=== PATIENT | male | born 1930 | race Caucasian/White ===

== ENCOUNTER 2017-08-19 15:50 | Observation (INO) | payer MEDICARE, OTHER ==
[2017-08-19] MEDS ORDERED: Acetaminophen 500 MG TAB ONE (16:45)
[2017-08-19] MEDS ORDERED: Acetaminophen 325 MG TAB PO PRN (19:15)
[2017-08-19] MEDS ORDERED: Ondansetron HCl/PF 4 MG/2 ML Vial IVP PRN ×2 (19:15→19:22)
[2017-08-19] MEDS ORDERED: Ondansetron ODT 4 MG TAB SL PRN (19:15)
[2017-08-19] MEDS ORDERED: Ondansetron ODT 4 MG TAB PO PRN (19:22)
[2017-08-19] MEDS ORDERED: Acetaminophen 500 MG TAB PO PRN (19:22)
[2017-08-19] MEDS ORDERED: Atorvastatin Calcium 40 MG TAB PO SCH (21:00)
[2017-08-19] MEDS: Famotidine 20 MG TAB PO SCH (21:54)
--- NOTE | 2017-08-19 21:57 | HP ---
PRIMARY CARE PHYSICIAN: Dahiana Marshall M.D. CHIEF COMPLAINT: Slurred speech and confusion. HISTORY OF PRESENT ILLNESS: This is an 87-year-old male who presented to [facility] after family noted increased confusion, left facial droop, slurred speech and shor tness of breath. Patient apparently developed the symptoms in the bladder trimmer hours on 08/19/2017 , noted by his 24-hour caregiver and family members. The history is obtained exclusively after disc ussions with the patient's family as the patient is unable to relate a coherent history due to demen tia. The patient was unable to get out of bed in the morning and typically uses a rolling walker wi th standby assistance. The reports he has been unable to utilize the walker over the last 2 da ys and has been wheelchair dependent. No specific history of medical noncompliance, recent fall, in jury, fever, chills or travel history. Patient underwent evaluation including CT imaging of the bra in showing no acute process. The patient had improvement in overall facial droop and dysarthria at the time of evaluation in the emergency room. The patient was transferred from [facility] to [facility] for further evaluation. PAST MEDICAL HISTORY: 1. Alzheimer dementia. 2. History of gross hematuria secondary to heparin. 3. History of rectal bleeding secondary to internal hemorrhoids. 4. Coronary artery disease, chronic and stable. 5. Hypertension. 6. Deconditioning. 7. Chronic obstructive pulmonary disease. 8. Chronic hypoxic respiratory failure with chronic oxygen supplementation nocturnally. 9. Gastroesophageal reflux disease. PAST SURGICAL HISTORY: 1. Status post back surgery. 2. Status post ureteral stent placement. 3. Status post inguinal hernia repair. 4. Status post prostatectomy. 5. Status post skin cancer removal in the 2002. CURRENT MEDICATIONS: Based on previous admission in 2017; 1. Amlodipine 10 mg 1 tab p.o. daily. 2. Enteric coated aspirin 81 mg 1 tab p.o. daily. 3. Lipitor 20 mg one tablet p.o. at bedtime. 4. Calcium 1200 mg p.o. b.i.d. 5. Citalopram 5 mg p.o. b.i.d. 6. Vitamin B12 1000 mcg p.o. daily. 7. Depakote 250 mg p.o. q.a.m. and 500 mg p.o. at bedtime. 8. Folic acid 1 mg p.o. daily. 9. Floranex 2 tabs p.o. b.i.d. 10. Lisinopril 40 mg 1 tab p.o. daily. 11. Namenda 10 mg p.o. at bedtime. 12. Myrbetriq 100 mg 1 tab p.o. at bedtime. 13. Protonix 40 mg 1 tab p.o. daily. 14. Vitamin E 400 units p.o. at bedtime. 15. Risperdal 0.5 mg p.o. at bedtime. ALLERGIES: 1. BACLOFEN. 2. KEFLEX. 3. CODEINE. 4. FLEXERIL. 5. DICLOFENAC. FAMILY HISTORY: No inheritable diseases per patient report. SOCIAL HISTORY: Patient resides in the [place], [place] area with family. The patient is marrie d. Receives 24-hour private care. No alcohol, tobacco or illicit drug use. Ambulates with the use of a rolling walker or wheelchair. REVIEW OF SYSTEMS: Constitutional: Weight loss or gain, ability to conduct usual activities. Skin: Rash, itching. Eyes: Double vision, pain. ENT/Mouth: Nose bleeding, neck stiffness, pain, tenderness. Cardiovascular: Palpitations, dyspnea on exertion, orthopnea. Respiratory: Shortness of breath, wheezing, cough, hemoptysis, fever or night sweats. Gastrointestinal: Poor appetite, abdominal pain, heartburn, nausea, vomiting, constipation, or diar johnathan. Genitourinary: Urgency, frequency, dysuria, nocturia. Musculoskeletal: Pain, swelling. Neurologic/Psychiatric: Anxiety, depression. Allergy/Immunologic: Skin rash, bleeding tendency. Otherwise negative except as stated per HPI. PHYSICAL EXAMINATION: VITAL SIGNS: On admission, blood pressure 155/74, pulse 60, respiratory rate 19, temperature 98.4 d egrees Fahrenheit and O2 saturation 92% on room air. GENERAL APPEARANCE: This is an 87-year-old male lying on the hospital bed, alert and resp onsive, oriented x2, pleasant, in no acute distress. HEENT: Pupils are equal, round and reactive to light and accommodation. Extraocular muscles are in tact. No scleral icterus, no conjunctival injection. Nares patent. OP is clear. Teeth in fair re pair. NECK: Supple. No cervical adenopathy, no thyromegaly, no carotid bruits, no JVD appreciated. Cerv ical spine with full active and passive range of motion. CHEST: Lungs are clear to auscultation bilaterally. Diminished breath sounds in the bases. CARDIOVASCULAR: S1 and S2, without noted murmur. ABDOMEN: Obese, soft, nontender and nondistended. Bowel sounds are positive in all four quadrants. There is no hepatosplenomegaly, no abdominal bruits, no rebound or guarding appreciated. EXTREMITIES: Warm and dry with fair turgor. Mild edema to the proximal shins bilaterally. Pulses are palpable distally at the dorsalis pedis, posterior tibial and popliteal arteries bilaterally. C apillary refill less than 2 seconds. NEUROLOGIC: Mild left facial droop noted. Mild dysarthria. Left upper extremity with 3-4/5 muscle strength compared to the right upper extremity. The patient not observed ambulatory during this ex am. Rest of the cranial nerves II-XII are grossly intact except as stated previously. PERTINENT LABORATORY AND X-RAY FINDINGS: Basic metabolic profile within normal limits. Liver funct ion tests within normal limits. Troponin negative x1. BNP 38.4, albumin 3.8 and TSH 1.47. CBC fletcher wed a white blood cell count of 8.1, hemoglobin 14.6, hematocrit 44, MCV 96 and platelet count 168. Urinalysis showed trace blood, otherwise negative. CT of the brain without contrast dated 017, showed diffuse cortical atrophy without acute intracranial process. Portable chest x-ray dated 08/19/2017, showed no acute cardiopulmonary process. Two views of the left hip dated 08/19/2017, s howed no evidence of fracture or dislocation. EKG dated 08/19/2017, by my interpretation shows sinu s mechanism with heart rates in the 60s. Normal R-wave progression noted in the precordial leads. Normal axis. No acute ST-T wave changes appreciated. ASSESSMENT AND PLAN: 1. Transient ischemic attack. The patient will be observed on the Stroke Unit. We will proceed [facility] general stroke protocol and obtain MRI imaging of the brain to further delineate neuroanatomy. C margothk 2D transthoracic echocardiogram and carotid Doppler study. Check fasting lipid profile in the a.m. Continue aspirin 325 mg daily. 2. Encephalopathy. Suspect secondarily to #1. We will continue general supportive measures and mo nitor clinical response. 3. Alzheimer dementia. Continue Namenda 10 mg p.o. at bedtime. 4. Hyperlipidemia. Continue Lipitor 40 mg p.o. at bedtime. 5. Coronary artery disease, chronic and stable. Continue aspirin 325 mg daily. Continue Lipitor. No current evidence to suggest acute coronary syndrome. 6. Deconditioning. Obtain PT, OT evaluation for functional assessment. General fall risk precauti ons. 7. Prophylaxis. Sequential compression devices while in bed. Pepcid 20 mg p.o. b.i.d. 8. Code status is full. Surrogate medical decision maker is patient's spouse.
[2017-08-19 22:46] VITALS: BMI 27.8
--- NOTE | 2017-08-20 00:04 | ULT ---
BILATERAL CAROTID DUPLEX ULTRASOUND WITH SPECTRAL ANALYSIS AND COLOR FLOW EVALUATION 08/19/17 HISTORY: TIA. FINDINGS: Manzano scale, color flow, doppler evaluation, with spectral analysis of the bilateral carotid arteries is performed with 2D imaging. There is calcified atherosclerotic plaque seen in the region of the c arotid bulbs and proximal internal carotid arteries bilaterally. There is less than 50% maximal stenosis in the bilateral internal carotid arteries according to the peak systolic velocities and the ICA/CCA ratios. The peak systolic velocity in the right ICA is 69.9 cm/s with an ICA/CCA ratio of 0.7. The peak systolic velocity in the left ICA is 57.8 cm/s with an ICA/CCA ratio of 0.62. Antegrade flow is demonstrated in the vertebral arteries bilaterally. IMPRESSION: No hemodynamically significant stenosis in the bilateral internal carotid arteries. POS: LAYLA
[2017-08-20 06:04] LABS: Anion Gap 12 mmol/L (10-20); BUN (Urea Nitrogen) 18 mg/dL (8.4-25.7); Calc. Creatinine Clearance 83 mL/min (70-130); Calcium 8.9 mg/dL (7.8-10.44); Carbon Dioxide 26 mmol/L (23-31); Chloride 103 mmol/L (98-107); Cholesterol 258 mg/dl (< 200 Desired); Estimated GFR-MDRD Greater than 90; LDL Cholesterol, Calculated 193 mg/dL
[2017-08-20 06:12] LABS: Hematocrit 39.6 % (42.0-52.0); Mean Platelet Volume 8.1 fL (7.4-10.4); Neutrophil 44 % (42-75); Reactive Lymphocytes 5 % (0-10); Red Blood Cell (RBC) Count 3.99 mill/uL (4.70-6.10); White Blood Cell (WBC) Count 6.8 thou/uL (4.8-10.8)
[2017-08-20] MEDS ORDERED: Aspirin 325 mg Enteric Coated Tablet PO SCH (09:00)
[2017-08-20] MEDS: Famotidine 20 MG TAB PO SCH (09:02)
[2017-08-20 11:48] VITALS: TEMP 97.6
[2017-08-20 14:42] VITALS: BP 118/53
--- NOTE | 2017-08-20 15:31 | DIS ---
DATE OF ADMISSION: 08/19/2017 DATE OF DISCHARGE: 08/20/2017 DISCHARGE DIAGNOSES: 1. Question of transient ischemic attack, resolved. 2. Hypertension, stable. 3. Acute encephalopathy, idiopathic, resolved. 4. Alzheimer's dementia, stable. 5. Hyperlipidemia. 6. Coronary artery disease, chronic and stable. 7. Deconditioning. CONSULTATIONS: None. PERTINENT LABORATORY DATA AND X-RAY FINDINGS: Basic metabolic profile within normal limits. Total cholesterol 258, triglycerides 104, HDL 44, LDL 193. CBC showed a white blood cell count of 6.8, he moglobin 13, hematocrit 40, MCV 99, platelet count 171. CT of the brain without contrast dated 07/24 showed diffuse cortical atrophy and white matter ischemic changes without acute process. Por table chest x-ray dated 08/19/2017 showed no acute cardiopulmonary process. Two views of the left h ip dated 08/19/2017 showed no evidence of acute process. MRI of the brain dated 08/20/2017 showed d iffuse chronic ischemic white matter changes without acute process. A 2D transthoracic echocardiogr am dated 08/20/2017 showed ejection fraction of 60%-65%. Diastolic dysfunction noted. Carotid Dopp ler study dated 08/19/2017 showed no hemodynamically significant stenosis. HOSPITAL COURSE: Patient was observed on the stroke unit after initially presenting with questionab le TIA with dysarthria and questionable left facial droop. The patient underwent extensive evaluati on including neuro imaging and general stroke protocol with all studies negative. The patient's sym ptoms had resolved and telemetry monitoring showed no evidence of acute arrhythmia or dysrhythmia. Metabolic screening was essentially unremarkable and the patient was recommended to continue aspirin 81 mg daily. Overall, patient clinically stable and ready for discharge 08/20/2017. DISCHARGE MEDICATIONS: 1. Amlodipine 10 mg 1 tab p.o. daily. 2. Enteric coated aspirin 81 mg 1 tab p.o. daily. 3. Lipitor 20 mg p.o. at bedtime. 4. Citalopram 5 mg p.o. b.i.d. 5. Vitamin B12 1000 mcg p.o. daily. 6. Depakote ER 500 mg p.o. at bedtime. 7. Lisinopril 40 mg p.o. daily. 8. Namenda 10 mg p.o. at bedtime. 9. Myrbetriq 100 mg p.o. at bedtime. 10. Vitamin E 400 units p.o. at bedtime. 11. Risperdal 0.5 mg p.o. b.i.d. FOLLOWUP: The patient will follow up with Dr. Dahiana Marshall within 7 days of discharge. CONDITION ON DISCHARGE: Stable. ACTIVITY: Ad joya. DIET: Heart healthy. CODE STATUS: FULL. DISPOSITION: Home 08/20/2017.
--- NOTE | 2017-08-20 15:59 | MRI ---
MRI BRAIN WITHOUT CONTRAST: HISTORY: Altered mental status, TIA. FINDINGS: Correlation is made with the previous day's CT scan. Changes of cortical atrophy and chronic small-vessel ischemic disease are noted again. The ventricu lar size is appropriate and the basilar cisterns are patent. No restricted diffusion is seen. No e vidence of transcortical infarct, hemorrhage, midline shift, or abnormal extraaxial fluid collection s are noted. There is mild mucosal disease in the paranasal sinuses. IMPRESSION: 1. No evidence of acute intracranial process. 2. Chronic small-vessel ischemic disease. 3. Cortical atrophy. POS: LAYLA
[2017-08-20] MEDS ORDERED: Non-Formulary Item 1 EACH (Risperidone [Risperdal] 0.5 MG) PO SCH (21:00)
[2017-08-20] MEDS ORDERED: MIRABEGRON PO SCH (21:00)
[2017-08-20] MEDS ORDERED: Non-Formulary Item 1 EACH (Vitamin E [Vitamin E] 400 UNIT) PO SCH (21:00)
[2017-08-20] MEDS ORDERED: Vitami E (Dl,Tocopheryl Acet) 400 UNITS CAP PO SCH (21:00)
[2017-08-20] MEDS ORDERED: CITALOPRAM HYDROBROMIDE 5 MG PO SCH (21:00)
[2017-08-20] MEDS ORDERED: risperiDONE 0.25 MG TAB PO SCH (21:00)
[2017-08-21] MEDS ORDERED: Cyanocobalamin (Vitamin B-12) 1,000 MCG TAB PO SCH (09:00)
[2017-08-21] MEDS ORDERED: Lisinopril 20 MG TAB PO SCH (09:00)
[2017-08-21] MEDS ORDERED: Non-Formulary Item 1 EACH (Lisinopril [Lisinopril] 40 MG) PO SCH (09:00)
[2017-08-21] MEDS ORDERED: Aspirin 81 mg Enteric Coated Tablet PO SCH (09:00)
== END 2017-08-20 15:49 | disposition home health service (06) ==
LOC: ERS 15:50 → 2SE 17:45
PROVIDERS: ADMIT Family Medicine; ATTEND Family Medicine
DX: R47.1 Dysarthria and anarthria (principal); I10 Essential (primary) hypertension; G93.40 Encephalopathy, unspecified; G30.9 Alzheimer's disease, unspecified; F02.80 Dementia in other diseases classified elsewhere, unspecified severity, without behavioral disturbance, psychotic disturbance, mood disturbance, and anxiety; E78.5 Hyperlipidemia, unspecified; I25.10 Atherosclerotic heart disease of native coronary artery without angina pectoris; R53.81 Other malaise; J44.9 Chronic obstructive pulmonary disease, unspecified; J96.11 Chronic respiratory failure with hypoxia; K21.9 Gastro-esophageal reflux disease without esophagitis; Z99.81 Dependence on supplemental oxygen; Z79.82 Long term (current) use of aspirin; Z79.899 Other long term (current) drug therapy; Z88.6 Allergy status to analgesic agent; Z88.1 Allergy status to other antibiotic agents; Z88.5 Allergy status to narcotic agent; Z88.8 Allergy status to other drugs, medicaments and biological substances
CPT/HCPCS: 70551; 80048; 80061; 85007; 85027; 93306; 93880; 97116; 97139 ×3; 97530; 99285; G0378; G8978; G8979; G8987; G8988; 36415; G8996-GN-CK; G8997-GN-CJ

== ENCOUNTER 2017-09-23 20:28 | Inpatient (IN) | payer MEDICARE ==
--- NOTE | 2017-09-23 21:02 | RAD ---
AP VIEW OF THE CHEST: 10/12/17 INDICATION: Lethargy. COMPARISON: Prior exam dated 08/19/17. FINDINGS: There are low lung volumes. There is moderate cardiomegaly which is stable. There is bibasilar opaci ties which may be related to subsegmental atelectasis; however, pneumonia cannot be excluded. No def inite pneumothorax or pleural effusions. No acute osseous abnormality is evident. IMPRESSION: Low lung volumes with bibasilar opacities suspicious for atelectasis; however, pneumonia could have a similar appearance. Repeat two views of the chest with improved inspiration may be helpful. POS: LAYLA
[2017-09-23 21:09] LABS: #Eosinphils 0.2 thou/uL (0.0-0.7); #Lymphocytes 2.4 thou/uL (1.20-3.40); #Monocytes 0.8 thou/uL (0.11-0.59); #Neutrophils 3.3 thou/uL (1.40-6.50); %Basophils 0.4 % (0.0-1.0); %Eosinophils 2.4 % (0.0-10.0); %Monocytes 11.6 % (0.0-10.0); Hematocrit 42.2 % (42.0-52.0); Mean Platelet Volume 7.9 fL (7.4-10.4); Red Blood Cell (RBC) Count 4.26 mill/uL (4.70-6.10); White Blood Cell (WBC) Count 6.6 thou/uL (4.8-10.8)
[2017-09-23 21:32] LABS: ALT (SGPT) 9 U/L (8-55); AST (SGOT) 15 U/L (5-34); Alkaline Phosphatase 59 U/L (40-150); Anion Gap 15 mmol/L (10-20); BUN (Urea Nitrogen) 19 mg/dL (8.4-25.7); Bilirubin, Total 0.4 mg/dL (0.2-1.2); CK (CPK) 26 U/L (30-200); Calc. Creatinine Clearance 0 mL/min (70-130); Calcium 9.4 mg/dL (7.8-10.44); Carbon Dioxide 26 mmol/L (23-31); Chloride 104 mmol/L (98-107); Estimated GFR-MDRD 71; Globulin 3.1 g/dL (2.4-3.5); Protein, Total 6.5 g/dL (5.8-8.1)
[2017-09-23 21:34] LABS: Troponin I Less than 0.010 ng/mL (< 0.028)
[2017-09-23] MEDS ORDERED: Nitroglycerin 2% Ointment 1 INCH/1 GM Packet ONE (22:05)
[2017-09-23 22:08] LABS: Lactic Acid - Sepsis 1.7 mmol/L (0.5-2.2)
[2017-09-24 00:48] VITALS: BMI 28.4
[2017-09-24] MEDS ORDERED: Ondansetron ODT 4 MG TAB SL PRN (00:50)
[2017-09-24] MEDS ORDERED: Acetaminophen 325 MG TAB PO PRN (00:50)
[2017-09-24] MEDS ORDERED: Ondansetron HCl/PF 4 MG/2 ML Vial IVP PRN ×2 (00:50→01:34)
[2017-09-24] MEDS ORDERED: HYDROcodone/Acetaminophen 5/325 mg Tablet PO PRN ×2 (00:50)
[2017-09-24] MEDS ORDERED: hydrALAZINE 20 MG/ML VIAL SLOW IVP PRN (01:34)
[2017-09-24] MEDS ORDERED: cloNIDine 0.1 MG TAB PO PRN (01:34)
[2017-09-24] MEDS ORDERED: Acetaminophen 500 MG TAB PO PRN (01:34)
[2017-09-24] MEDS ORDERED: Ondansetron ODT 4 MG TAB PO PRN (01:34)
[2017-09-24 02:55] LABS: Hematocrit 38.3 % (42.0-52.0); Mean Platelet Volume 7.9 fL (7.4-10.4); Myelocyte 1 % (0-0); Neutrophil 41 % (42-75); Red Blood Cell (RBC) Count 3.86 mill/uL (4.70-6.10); White Blood Cell (WBC) Count 7.1 thou/uL (4.8-10.8)
[2017-09-24 03:05] LABS: Troponin I 0.014 ng/mL (< 0.028)
[2017-09-24 03:08] LABS: Anion Gap 12 mmol/L (10-20); BUN (Urea Nitrogen) 20 mg/dL (8.4-25.7); Calc. Creatinine Clearance 80 mL/min (70-130); Calcium 8.9 mg/dL (7.8-10.44); Carbon Dioxide 26 mmol/L (23-31); Chloride 104 mmol/L (98-107); Estimated GFR-MDRD 90
--- NOTE | 2017-09-24 05:37 | HP ---
DATE OF ADMISSION: 09/24/2017 PRIMARY CARE PHYSICIAN: Brennan Polanco MD CHIEF COMPLAINT: Lethargy. HISTORY OF PRESENT ILLNESS: This is an 87-year-old male who presents to [facility] Emergency Room accompanied by his who had reported to the initial ER attending of concerns for increased lethargy and difficulty arousing the patient at home. The patient appare ntly had been sleeping most of the day and was difficult to arouse at which point the patient's became concerned notifying EMS personnel. EMS arrived performing a sternal rub with the patient be ing difficult to arouse. The patient was transferred to the emergency room for evaluation and stephen rn for underlying infectious process and general assessment. had reported poor appetite over t he last several days as well as decreased urine output in the last 24 hours. The family reports the patient normally uses home oxygen continuously as well as night time. The patient has had limited mobility using a rolling walker for short distance ambulation. No specific history of recent fall. The patient was notably admitted to [facility] on 08/19/2017 to 08/20/2017 a fter acute encephalopathy of unknown etiology. Initial concern was related to possible TIA; however , the patient underwent multiple neuroimaging studies, all negative. In the emergency room, the pat ient underwent general evaluation receiving Levaquin 750 mg x1 dose as well as aspirin and topical n itroglycerin. Chest imaging showed questionable chronic opacities in the bibasilar segments concern ing for atelectasis. Pneumonitis could not be ruled out. The patient was referred to the telemetry unit for further evaluation. PAST MEDICAL HISTORY: 1. Alzheimer's dementia. 2. History of gross hematuria secondary to heparin. 3. History of rectal bleeding secondary to internal hemorrhoids. 4. Coronary artery disease, chronic and stable. 5. Hypertension. 6. Deconditioning. 7. Chronic obstructive pulmonary disease. 8. Chronic hypoxemic respiratory failure with chronic oxygen supplementation nocturnally. 9. Gastroesophageal reflux disease. PAST SURGICAL HISTORY: 1. Status post back surgery. 2. Status post ureteral stent placement. 3. Status post inguinal hernia repair. 4. Status post prostatectomy. 5. Status post skin cancer removal in the nar2002. CURRENT MEDICATIONS: Based on previous discharge 08/20/2017: 1. Amlodipine 10 mg 1 tab p.o. daily. 2. Enteric coated aspirin 81 mg 1 tab p.o. daily. 3. Lipitor 20 mg p.o. at bedtime. 4. Calcium 1200 mg p.o. b.i.d. 5. Citalopram 5 mg p.o. b.i.d. 6. Vitamin B12 1000 mcg p.o. daily. 7. Depakote 250 mg p.o. q.a.m. and 500 mg p.o. at bedtime. 8. Folic acid 1 mg p.o. daily. 9. Lisinopril 40 mg 1 tab p.o. daily. 10. Namenda 10 mg p.o. at bedtime. 11. Myrbetriq 100 mg p.o. at bedtime. 12. Protonix 40 mg 1 tab p.o. daily. 13. Vitamin E 400 units p.o. at bedtime. 14. Risperdal 0.5 mg p.o. at bedtime. ALLERGIES: 1. BACLOFEN. 2. KEFLEX. 3. CODEINE. 4. FLEXERIL. 5. DICLOFENAC. FAMILY HISTORY: No inheritable diseases per the patient report. SOCIAL HISTORY: The patient resides in [facility] with family. No current alcohol, t obacco, or illicit drug use. The patient is and receiving 24-hour private care. Ambulates with the use of a rolling walker or wheelchair. REVIEW OF SYSTEMS: The following complete review of systems was negative, unless otherwise mentione d in the HPI or below: Constitutional: Weight loss or gain, ability to conduct usual activities. Skin: Rash, itching. Eyes: Double vision, pain. ENT/Mouth: Nose bleeding, neck stiffness, pain, tenderness. Cardiovascular: Palpitations, dyspnea on exertion, orthopnea. Respiratory: Shortness of breath, wheezing, cough, hemoptysis, fever or night sweats. Gastrointestinal: Poor appetite, abdominal pain, heartburn, nausea, vomiting, constipation, or diar johnathan. Genitourinary: Urgency, frequency, dysuria, nocturia. Musculoskeletal: Pain, swelling. Neurologic/Psychiatric: Anxiety, depression. Allergy/Immunologic: Skin rash, bleeding tendency. PHYSICAL EXAMINATION: VITAL SIGNS: On admission, blood pressure 140/63, pulse 61, respiratory rate 18, temperature 98.1 d egrees Fahrenheit, O2 saturation 93% on 2 liters per minute by nasal cannula. GENERAL APPEARANCE: This is an 87-year-old male. Answers questions briefly. Alert and o riented x2 in no acute distress. HEENT: Pupils are equal, round, and reactive to light and accommodation. Extraocular muscles are i ntact. No scleral icterus, no conjunctival injection. Nares patent. OP is clear. Teeth are in fa ir repair. NECK: Supple, no cervical adenopathy, no thyromegaly, no carotid bruits, no JVD appreciated. Cervi rafael spine is with full active and passive range of motion. CHEST: Decreased breath sounds in the basilar segments, otherwise clear. CARDIOVASCULAR: S1, S2, without noted murmur. ABDOMEN: Obese, soft, nontender, nondistended. Bowel sounds are positive in all four quadrants. T here is no hepatosplenomegaly, no abdominal bruits, no rebound or guarding appreciated. EXTREMITIES: Warm and dry with fair turgor. Pitting edema to the proximal shins bilaterally. Puls es are palpable distally at the dorsalis pedis, posterior tibial, and popliteal arteries bilaterally . Capillary refill less than 2 seconds. NEUROLOGIC: Cranial nerves II through XII are grossly intact. Alert and oriented x2. Not observed ambulatory during this exam. No gross focal deficits appreciated. PERTINENT LABORATORY AND X-RAY FINDINGS: Basic metabolic profile within normal limits. Lactic acid level 1.7, calcium 9.4. LFTs are within normal limits. Total CK of 26, troponin I negative x2. B FAMILY ASSISTANT 60. Albumin 3.4. TSH 1.84. CBC showed a white blood cell count of 6.6, hemoglobin 13.6, hemato crit is 42, MCV 99, platelet count 188 with a normal differential. Portable chest x-ray dated 09/23 showed bibasilar opacities suspicious for atelectasis. Cannot rule out pneumonitis. EKG date d 09/23/2017 by my interpretation shows sinus mechanism with heart rates in the 60s. Attenuated R w aves noted in the precordial leads. Normal axis. Isolated Q-waves in lead III and F. ASSESSMENT AND PLAN: 1. Question of acute encephalopathy/altered mental status. The patient will be admitted to the [facility] emetry unit. Exact etiology is unclear. Suspect multifactorial process with potential for dehydrat ion and polypharmacy. We will continue general supportive measures and rule out infectious process. Check urine culture. Continue general supportive measures and monitor clinical response. 2. Hypertension, stable. We will resume home antihypertensive regimen and monitor clinical respons e. 3. Alzheimer's dementia. Stable currently. Resume home regimen to include Namenda 10 mg p.o. at b edtime. 4. Question of urinary tract infection. We will further rule out infectious process with a urine c ulture. The patient initially received Levaquin 750 mg x1 dose in the emergency room. 5. Question of acute kidney injury. We will continue intravenous normal saline at 75 mL per hour. Repeat creatinine. Avoid nephrotoxic agents and contrast media. 6. Prophylaxis. Sequential compression devices while in bed. Pepcid 20 mg p.o. b.i.d. General fa ll precautions. 7. Code status is FULL. The surrogate medical decision maker is the patient's spouse.
[2017-09-24] MEDS ORDERED: Nitroglycerin 2% Ointment 1 INCH/1 GM Packet TOP SCH (06:00)
[2017-09-24] MEDS ORDERED: Furosemide 40 MG/4 ML VIAL SLOW IVP SCH (06:00)
[2017-09-24] MEDS: Sodium Chloride 0.9% 1,000 ML IV SCH ×2 (06:32→19:05)
[2017-09-24] MEDS ORDERED: Aspirin 325 mg Enteric Coated Tablet PO SCH (09:00)
[2017-09-24] MEDS: Citalopram 20 MG TAB PO SCH ×2 (10:34→22:05)
[2017-09-24] MEDS: Aspirin 81 mg Enteric Coated Tablet PO SCH (10:34)
[2017-09-24] MEDS: Famotidine 20 MG TAB PO SCH ×2 (10:34→22:07)
[2017-09-24] MEDS: Amlodipine 10 MG TAB PO SCH (10:35)
--- NOTE | 2017-09-24 13:09 | PDOC.PN ---
- Subjective Encounter Start Date: 09/24/17 Encounter Start Time: 11:00 Subjective: is awake, trying to eat his breakfast -: no sob or chest pain - Objective Resuscitation Status: Resuscitation Status FULL:Full Resuscitation MAR Reviewed: Yes Vital Signs & Weight: Vital Signs (12 hours) Temp Pulse Resp BP BP Pulse Ox 09/24/17 12:28 97.7 F 54 L 20 105/56 L 92 L 09/24/17 10:35 55 L 114/57 L 09/24/17 08:30 98.0 F 55 L 20 95 09/24/17 07:40 98.0 F 55 L 20 114/56 L 95 09/24/17 04:00 97.5 F L 57 L 18 129/70 95 09/24/17 01:34 93 L Weight Admit Weight 198 lb Weight 198 lb I&O: 09/23/17 09/24/17 09/25/17 06:59 06:59 06:59 Intake Total 75 Output Total 300 Balance -225 Result Diagrams: 09/24/17 02:34 09/24/17 02:34 Phys Exam - Physical Examination HEENT: PERRLA, moist MMs Neck: no JVD, supple Respiratory: no wheezing, no rales Cardiovascular: RRR, no significant murmur Gastrointestinal: soft, non-tender, positive bowel sounds Musculoskeletal: no edema, pulses present Neurological: non-focal, moves all 4 limbs Dx/Plan (1) Dehydration Code(s): E86.0 - DEHYDRATION Status: Acute (2) Generalized weakness Code(s): R53.1 - WEAKNESS Status: Acute (3) COPD (chronic obstructive pulmonary disease) Status: Chronic Qualifiers: COPD type: unspecified COPD Qualified Code(s): J44.9 - Chronic obstructive pulmonary disease, unspecified (4) Dyslipidemia Code(s): E78.5 - HYPERLIPIDEMIA, UNSPECIFIED Status: Chronic (5) CAD (coronary artery disease) Code(s): I25.10 - ATHSCL HEART DISEASE OF [place] CORONARY ARTERY W/O ANG PCTRS Status: Chronic Qualifiers: Coronary Disease-Associated Artery/Lesion type: [place] artery [place] vs. transplanted heart: [place] heart Associated angina: without angina Qualified Code(s): I25.10 - Atherosclerotic heart disease of [place] coronary artery without angina pectoris Comment: Chronic, stable (6) Dementia Code(s): F03.90 - UNSPECIFIED DEMENTIA WITHOUT BEHAVIORAL DISTURBANCE Status: Chronic Qualifiers: Dementia type: Alzheimer's disease Dementia behavioral disturbance: without behavioral disturbance (7) HTN (hypertension) Code(s): I10 - ESSENTIAL (PRIMARY) HYPERTENSION Status: Chronic Qualifiers: Hypertension type: essential hypertension - Plan gentle iv hydration -: d/w and family at bedside -: dc plan in am -: pureed diet, ellen hose, PT eval * . Review of Systems - Medications/Allergies Allergies/Adverse Reactions: Allergies Allergy/AdvReac Type Severity Reaction Status Date / Time baclofen Allergy Verified 09/24/17 08:16 cephalexin [From Keflex] Allergy Verified 09/24/17 08:16 codeine Allergy Verified 09/24/17 08:16 cyclobenzaprine Allergy Verified 09/24/17 08:16 [From Flexeril] diclofenac Allergy Verified 09/24/17 08:16 quetiapine [From Seroquel] Allergy Verified 09/24/17 08:16 hydrocodone [From [place]] AdvReac Verified 09/24/17 08:16 Medications: Current Medications Acetaminophen (Tylenol) 1,000 mg PO Q6H PRN PRN Reason: Headache/Fever or Mild Pain Amlodipine Besylate (Norvasc) 10 mg PO DAILY [facility] Last Admin: 09/24/17 10:35 Dose: 10 mg Aspirin (Ecotrin) 81 mg PO DAILY [facility] Last Admin: 09/24/17 10:34 Dose: 81 mg Citalopram Hydrobromide (Celexa) 5 mg PO BID [facility] Last Admin: 09/24/17 10:34 Dose: 5 mg Clonidine (Catapres) 0.1 mg PO Q4H PRN PRN Reason: Systolic BP > 180 Divalproex Sodium (Depakote Er) 500 mg PO [facility] Famotidine (Pepcid) 20 mg PO BID [facility] Last Admin: 09/24/17 10:34 Dose: 20 mg Hydralazine HCl (Apresoline) 10 mg SLOW IVP Q4H PRN PRN Reason: Systolic BP > 180 Sodium Chloride (Normal Saline 0.9%) 1,000 mls @ 75 mls/hr IV .[id number] [facility] Last Admin: 09/24/17 06:32 Dose: 1,000 mls Memantine (Namenda) 10 mg PO HS [facility] Ondansetron HCl (Zofran Odt) 4 mg PO Q6H PRN PRN Reason: Nausea/Vomiting Ondansetron HCl (Zofran) 4 mg IVP Q6H PRN PRN Reason: Nausea/Vomiting
[2017-09-24] MEDS ORDERED: risperiDONE 0.25 MG TAB PO SCH (22:45)
[2017-09-25] MEDS: Sodium Chloride 0.9% 1,000 ML IV SCH (05:00)
[2017-09-25] MEDS ORDERED: Bisacodyl 5 MG TAB PO PRN (09:29)
[2017-09-25] MEDS: Famotidine 20 MG TAB PO SCH ×2 (10:04→22:53)
[2017-09-25] MEDS: Amlodipine 10 MG TAB PO SCH (10:05)
[2017-09-25] MEDS: Citalopram 20 MG TAB PO SCH ×2 (10:05→22:53)
[2017-09-25] MEDS: Aspirin 81 mg Enteric Coated Tablet PO SCH (10:06)
[2017-09-25] MEDS: Dextrose 5 % And 0.9 % NaCl 1,000 ML IV SCH (10:06)
[2017-09-25] MEDS: risperiDONE 0.25 MG TAB PO SCH ×2 (10:06→22:52)
--- NOTE | 2017-09-25 11:26 | PDOC.PN ---
- Subjective Encounter Start Date: 09/25/17 Encounter Start Time: 07:45 -: old records requested/rev last night pt had rough night, did not sleep, now this morning sleeping, present bedside Patient seen and examined. - Objective Resuscitation Status: Resuscitation Status FULL:Full Resuscitation MAR Reviewed: Yes Vital Signs & Weight: Vital Signs (12 hours) Temp Pulse Resp BP BP Pulse Ox 09/25/17 10:44 97.4 F L 54 L 20 95 09/25/17 10:05 54 L 134/62 09/25/17 09:58 97.4 F L 54 L 20 134/62 95 09/25/17 04:01 94 L 09/25/17 04:00 99.0 F 57 L 16 123/63 98 Weight Admit Weight 198 lb Weight 198 lb 1.6 oz I&O: 09/24/17 09/25/17 09/26/17 06:59 06:59 05:59 Intake Total 75 2440 Output Total 300 1060 Balance -225 1380 Result Diagrams: 09/24/17 02:34 09/24/17 02:34 EKG Reviewed by me: Yes Phys Exam - Physical Examination Constitutional: NAD sleeping HEENT: PERRLA, sclera anicteric Neck: no JVD, supple Respiratory: no wheezing, no rales, no rhonchi, clear to auscultation bilateral Cardiovascular: RRR, no significant murmur Gastrointestinal: soft, no distention, positive bowel sounds Musculoskeletal: no edema, pulses present unable to examine Lymphatic: no nodes Deviation from normal: unable assess Skin: no rash, normal turgor Dx/Plan (1) Pneumonia Code(s): J18.9 - PNEUMONIA, UNSPECIFIED ORGANISM Status: Suspected Qualifiers: Laterality: bilateral Lung location: lower lobe of lung (2) Dehydration Code(s): E86.0 - DEHYDRATION Status: Resolved (3) Generalized weakness Code(s): R53.1 - WEAKNESS Status: Acute (4) Anxiety and depression Code(s): F41.8 - OTHER SPECIFIED ANXIETY DISORDERS Status: Chronic (5) CAD (coronary artery disease) Code(s): I25.10 - ATHSCL HEART DISEASE OF [place] CORONARY ARTERY W/O ANG PCTRS Status: Chronic Qualifiers: Coronary Disease-Associated Artery/Lesion type: [place] artery [place] vs. transplanted heart: [place] heart Associated angina: without angina Qualified Code(s): I25.10 - Atherosclerotic heart disease of [place] coronary artery without angina pectoris Comment: Chronic, stable (6) COPD (chronic obstructive pulmonary disease) Status: Chronic Qualifiers: COPD type: unspecified COPD Qualified Code(s): J44.9 - Chronic obstructive pulmonary disease, unspecified (7) Dementia Code(s): F03.90 - UNSPECIFIED DEMENTIA WITHOUT BEHAVIORAL DISTURBANCE Status: Chronic Qualifiers: Dementia type: Alzheimer's disease Dementia behavioral disturbance: without behavioral disturbance (8) Dyslipidemia Code(s): E78.5 - HYPERLIPIDEMIA, UNSPECIFIED Status: Chronic (9) HTN (hypertension) Code(s): I10 - ESSENTIAL (PRIMARY) HYPERTENSION Status: Chronic Qualifiers: Hypertension type: essential hypertension - Plan cont current plan of care, plan discussed w/ family, continue antibiotics * will add levaquin * culture is negative so far * pt has no improvement in condition as per family, will monitor * will repeat labs tomorrow * medication reviewed as below * symptomatic treatment * discussed with . Review of Systems - Review of Systems Other: unable to review due to dementia and now sleeping - Medications/Allergies Allergies/Adverse Reactions: Allergies Allergy/AdvReac Type Severity Reaction Status Date / Time baclofen Allergy Verified 09/24/17 08:16 cephalexin [From Keflex] Allergy Verified 09/24/17 08:16 codeine Allergy Verified 09/24/17 08:16 cyclobenzaprine Allergy Verified 09/24/17 08:16 [From Flexeril] diclofenac Allergy Verified 09/24/17 08:16 quetiapine [From Seroquel] Allergy Verified 09/24/17 08:16 hydrocodone [From [place]] AdvReac Verified 09/24/17 08:16 Medications: Current Medications Acetaminophen (Tylenol) 1,000 mg PO Q6H PRN PRN Reason: Headache/Fever or Mild Pain Amlodipine Besylate (Norvasc) 10 mg PO DAILY [facility] Last Admin: 09/25/17 10:05 Dose: 10 mg Aspirin (Ecotrin) 81 mg PO DAILY [facility] Last Admin: 09/25/17 10:06 Dose: 81 mg Bisacodyl (Dulcolax) 5 mg PO DAILY PRN PRN Reason: Constipation Citalopram Hydrobromide (Celexa) 5 mg PO BID [facility] Last Admin: 09/25/17 10:05 Dose: 5 mg Clonidine (Catapres) 0.1 mg PO Q4H PRN PRN Reason: Systolic BP > 180 Divalproex Sodium (Depakote Er) 500 mg PO HS [facility] Last Admin: 09/24/17 22:05 Dose: 500 mg Famotidine (Pepcid) 20 mg PO BID [facility] Last Admin: 09/25/17 10:04 Dose: 20 mg Hydralazine HCl (Apresoline) 10 mg SLOW IVP Q4H PRN PRN Reason: Systolic BP > 180 Dextrose/Sodium Chloride (D5 0.9% Ns) 1,000 mls @ 50 mls/hr IV .Q20H [facility] Last Admin: 09/25/17 10:06 Dose: 1,000 mls Levofloxacin 500 mg/ Device 100 mls @ 100 mls/hr IVPB 1000 [facility] Last Admin: 09/25/17 10:07 Dose: 100 mls Memantine (Namenda) 10 mg PO [facility] Last Admin: 09/24/17 22:08 Dose: 10 mg Ondansetron HCl (Zofran Odt) 4 mg PO Q6H PRN PRN Reason: Nausea/Vomiting Ondansetron HCl (Zofran) 4 mg IVP Q6H PRN PRN Reason: Nausea/Vomiting Risperidone (Risperidone) 0.5 mg PO BID [facility] Last Admin: 09/25/17 10:06 Dose: 0.5 mg Sodium Chloride (Flush - Normal Saline) 10 ml IVF Q12HR [facility] Last Admin: 09/25/17 10:07 Dose: Not Given Sodium Chloride (Flush - Normal Saline) 10 ml IVF PRN PRN PRN Reason: Saline Flush
[2017-09-26 05:28] LABS: #Basophils 0.1 thou/uL (0.0-0.2); #Eosinphils 0.4 thou/uL (0.0-0.7); #Lymphocytes 3.3 thou/uL (1.20-3.40); #Monocytes 0.9 thou/uL (0.11-0.59); %Basophils 0.9 % (0.0-1.0); %Eosinophils 4.8 % (0.0-10.0); %Lymphocytes 43.5 % (21.0-51.0); %Monocytes 11.4 % (0.0-10.0); Hematocrit 39.3 % (42.0-52.0); Mean Platelet Volume 8.3 fL (7.4-10.4); Red Blood Cell (RBC) Count 3.98 mill/uL (4.70-6.10); White Blood Cell (WBC) Count 7.6 thou/uL (4.8-10.8)
[2017-09-26 05:35] LABS: Anion Gap 9 mmol/L (10-20); BUN (Urea Nitrogen) 13 mg/dL (8.4-25.7); Calc. Creatinine Clearance 85 mL/min (70-130); Calcium 8.5 mg/dL (7.8-10.44); Carbon Dioxide 27 mmol/L (23-31); Chloride 108 mmol/L (98-107); Estimated GFR-MDRD Greater than 90
[2017-09-26] MEDS: Dextrose 5 % And 0.9 % NaCl 1,000 ML IV SCH (07:30)
[2017-09-26] MEDS: Famotidine 20 MG TAB PO SCH ×2 (08:30→20:59)
[2017-09-26] MEDS: risperiDONE 0.25 MG TAB PO SCH ×2 (08:30→21:00)
[2017-09-26] MEDS: Amlodipine 10 MG TAB PO SCH (08:31)
[2017-09-26] MEDS: Aspirin 81 mg Enteric Coated Tablet PO SCH (08:31)
[2017-09-26] MEDS: Citalopram 20 MG TAB PO SCH ×2 (08:31→20:59)
--- NOTE | 2017-09-26 09:52 | PDOC.PN ---
- Subjective Encounter Start Date: 09/26/17 Encounter Start Time: 09:00 Patient seen and examined. No new complaints. No overnight events - Objective Resuscitation Status: Resuscitation Status DNR:Do Not Resuscitate MAR Reviewed: Yes Vital Signs & Weight: Vital Signs (12 hours) Temp Pulse Resp BP BP Pulse Ox 09/26/17 08:31 54 L 144/68 H 09/26/17 08:00 97.6 F 56 L 18 144/68 H 98 09/26/17 04:07 94 L 09/26/17 04:00 97.7 F 54 L 18 126/59 L 97 Weight Admit Weight 198 lb Weight 197 lb 1.6 oz I&O: 09/25/17 09/26/17 09/27/17 07:59 06:59 06:59 Intake Total Output Total Balance Result Diagrams: 09/26/17 04:54 09/26/17 04:54 EKG Reviewed by me: Yes Phys Exam - Physical Examination Constitutional: NAD HEENT: PERRLA, moist MMs, sclera anicteric Neck: no JVD, supple Respiratory: no wheezing, no rales, no rhonchi Cardiovascular: RRR, no significant murmur, no rub Gastrointestinal: soft, non-tender, no distention, positive bowel sounds Musculoskeletal: no edema, pulses present Neurological: non-focal, normal sensation Psychiatric: normal affect Skin: no rash, normal turgor Dx/Plan (1) Pneumonia Code(s): J18.9 - PNEUMONIA, UNSPECIFIED ORGANISM Status: Suspected Qualifiers: Laterality: bilateral Lung location: lower lobe of lung (2) Dehydration Code(s): E86.0 - DEHYDRATION Status: Resolved (3) Generalized weakness Code(s): R53.1 - WEAKNESS Status: Acute (4) Anxiety and depression Code(s): F41.8 - OTHER SPECIFIED ANXIETY DISORDERS Status: Chronic (5) CAD (coronary artery disease) Code(s): I25.10 - ATHSCL HEART DISEASE OF [place] CORONARY ARTERY W/O ANG PCTRS Status: Chronic Qualifiers: Coronary Disease-Associated Artery/Lesion type: [place] artery [place] vs. transplanted heart: [place] heart Associated angina: without angina Qualified Code(s): I25.10 - Atherosclerotic heart disease of [place] coronary artery without angina pectoris Comment: Chronic, stable (6) COPD (chronic obstructive pulmonary disease) Status: Chronic Qualifiers: COPD type: unspecified COPD Qualified Code(s): J44.9 - Chronic obstructive pulmonary disease, unspecified (7) Dementia Code(s): F03.90 - UNSPECIFIED DEMENTIA WITHOUT BEHAVIORAL DISTURBANCE Status: Chronic Qualifiers: Dementia type: Alzheimer's disease Dementia behavioral disturbance: without behavioral disturbance (8) Dyslipidemia Code(s): E78.5 - HYPERLIPIDEMIA, UNSPECIFIED Status: Chronic (9) HTN (hypertension) Code(s): I10 - ESSENTIAL (PRIMARY) HYPERTENSION Status: Chronic Qualifiers: Hypertension type: essential hypertension - Plan cont current plan of care, plan discussed w/ family, continue antibiotics * code status -discussed with at length and she wants to change to DNR * discussed discharge options, she prefers hospice at home on discharge * continue levaquin * will plan for discharge tomorrow * medication reviewed as below * symptomatic treatment. Review of Systems - Review of Systems Other: not reliable due to dementia - Medications/Allergies Allergies/Adverse Reactions: Allergies Allergy/AdvReac Type Severity Reaction Status Date / Time baclofen Allergy Verified 09/24/17 08:16 cephalexin [From Keflex] Allergy Verified 09/24/17 08:16 codeine Allergy Verified 09/24/17 08:16 cyclobenzaprine Allergy Verified 09/24/17 08:16 [From Flexeril] diclofenac Allergy Verified 09/24/17 08:16 quetiapine [From Seroquel] Allergy Verified 09/24/17 08:16 hydrocodone [From [place]] AdvReac Verified 09/24/17 08:16 Medications: Current Medications Acetaminophen (Tylenol) 1,000 mg PO Q6H PRN PRN Reason: Headache/Fever or Mild Pain Amlodipine Besylate (Norvasc) 10 mg PO DAILY [facility] Last Admin: 09/26/17 08:31 Dose: 10 mg Aspirin (Ecotrin) 81 mg PO DAILY [facility] Last Admin: 09/26/17 08:31 Dose: 81 mg Bisacodyl (Dulcolax) 5 mg PO DAILY PRN PRN Reason: Constipation Citalopram Hydrobromide (Celexa) 5 mg PO BID [facility] Last Admin: 09/26/17 08:31 Dose: 5 mg Clonidine (Catapres) 0.1 mg PO Q4H PRN PRN Reason: Systolic BP > 180 Divalproex Sodium (Depakote Er) 500 mg PO HS [facility] Last Admin: 09/25/17 23:07 Dose: 500 mg Famotidine (Pepcid) 20 mg PO BID [facility] Last Admin: 09/26/17 08:30 Dose: 20 mg Hydralazine HCl (Apresoline) 10 mg SLOW IVP Q4H PRN PRN Reason: Systolic BP > 180 Dextrose/Sodium Chloride (D5 0.9% Ns) 1,000 mls @ 50 mls/hr IV .Q20H [facility] Last Admin: 09/26/17 07:30 Dose: 1,000 mls Levofloxacin 500 mg/ Device 100 mls @ 100 mls/hr IVPB 1000 [facility] Last Admin: 09/26/17 08:31 Dose: 100 mls Memantine (Namenda) 10 mg PO [facility] Last Admin: 09/25/17 22:52 Dose: 10 mg Ondansetron HCl (Zofran Odt) 4 mg PO Q6H PRN PRN Reason: Nausea/Vomiting Ondansetron HCl (Zofran) 4 mg IVP Q6H PRN PRN Reason: Nausea/Vomiting Risperidone (Risperidone) 0.5 mg PO BID [facility] Last Admin: 09/26/17 08:30 Dose: 0.5 mg Sodium Chloride (Flush - Normal Saline) 10 ml IVF Q12HR [facility] Last Admin: 09/26/17 08:31 Dose: Not Given Sodium Chloride (Flush - Normal Saline) 10 ml IVF PRN PRN PRN Reason: Saline Flush
[2017-09-27] MEDS: Dextrose 5 % And 0.9 % NaCl 1,000 ML IV SCH (05:50)
[2017-09-27] MEDS: Citalopram 20 MG TAB PO SCH (09:27)
[2017-09-27] MEDS: Famotidine 20 MG TAB PO SCH (09:27)
[2017-09-27] MEDS: risperiDONE 0.25 MG TAB PO SCH (09:27)
[2017-09-27] MEDS: Amlodipine 10 MG TAB PO SCH (09:27)
[2017-09-27] MEDS: Aspirin 81 mg Enteric Coated Tablet PO SCH (09:32)
[2017-09-27 09:55] VITALS: TEMP 97.6
[2017-09-27 12:17] VITALS: BP 134/60
--- NOTE | 2017-09-27 12:25 | PQF ---
CLINICAL DOCUMENTATION IMPROVEMENT CLARIFICATION FORM: ICD-10 Updated PLEASE DO AN ADDENDUM TO THE PROGRESS NOTE WITH ANY DOCUMENTATION UPDATES OR ADDITIONS AND CARRY THROUGH TO DC SUMMARY. THANK YOU. DATE: 09/27/17 ATTN: Dr. Dunn Please exercise your independent, professional judgment in responding to the clarification form. Clinical indicators are provided on the bottom of this form for your review Please check appropriate box(s): [ x ] Encephalopathy: Etiology: [ x ] Metabolic [ ] Toxic [ ] Unspecified [ ] in the setting of underlying dementia [ ] Other (please specify) [ ] Transient Alteration of Awareness [ ] Other diagnosis [ ] Unable to determine For continuity of documentation, please document condition throughout progress notes and discharge summary. Thank You. CLINICAL INDICATORS - SIGNS / SYMPTOMS / LABS H&P: QUESTION OF ACUTE ENCEPHALOPATHY/ ALTERED MENTAL STATUS QUESTION OF UTI. PN 09/25-09/26: PNEUMONIA, UNSPECIFIED ORGANISM. SUSPECTED. RISKS: H&P: INCREASED LETHARGY. DIFFICULT TO AROUSE. PORTABLE CHEST XRY 09/23: CANNOT RULE OUT PNEUMONITIS. HX OF ALZHEIMER'S DEMENTIA. CAD. HTN. COPD. TREATMENT: CPOE 09/25: LEVAQUIN 500 MG IV Thank you, Juana (This form is maintained as a part of the permanent medical record) 2015 [employer]. All Rights Reserved Juana Schaeffer RN, BSN [email or web address] Office: [phone] [facility]
--- NOTE | 2017-09-27 13:10 | DIS ---
DATE OF ADMISSION: 09/23/2017 DATE OF DISCHARGE: 09/27/2017 PRIMARY CARE PHYSICIAN: Dahiana Marshall M.D. DISCHARGE DISPOSITION: Home with home hospice. PRIMARY DISCHARGE DIAGNOSES: 1. Generalized weakness. 2. Dehydration. 3. Acute kidney injury. 4. Urinary tract infection. SECONDARY DISCHARGE DIAGNOSES: Anxiety, depression, coronary artery disease, chronic obstructive pulmonary disease, dementia, hypertension, dyslipidemia, Alzheimer's dementia, history of gastrointestinal bleeding, chronic physical deconditioning, chronic hypoxic respiratory failure on home oxygen, and gastroesophageal reflux disease. PRIMARY PROCEDURE/OPERATION: None. RADIOLOGICAL INVESTIGATION: Chest x-ray was normal. SIGNIFICANT LABORATORY DATA: Hemoglobin 12.6, creatinine 0.76. Electrolytes normal. Cardiac enzymes negative x3. LFTs normal. DISCHARGE MEDICATIONS: Amlodipine 10 mg p.o. daily, aspirin 81 mg p.o. daily, Dulcolax 5 mg p.o. daily, Celexa 20 mg p.o. daily, Depakote ER 1250 mg p.o. at bedtime, Namenda 10 mg p.o. at bedtime, risperidone 0.5 mg p.o. b.i.d., Levaquin 500 mg p.o. daily. CONTRAINDICATIONS: None. CODE STATUS: DNR. This was discussed during this admission. INPATIENT CONSULTANTS: None. ALLERGIES: BACLOFEN, CEPHALEXIN, CODEINE, FLEXERIL, DICLOFENAC. DISCHARGE PLAN: Post hospital, the patient is discharged to home with home hospice. HOSPITAL COURSE: An 87-year-old male who was admitted by Dr. Prasad, please see the H\T\P for further details. The patient was admitted for generalized weakness, dehydration, and he had mild acute kidney injury and findings suggestive of urinary tract infection. He was admitted to telemetry floor. We ruled out cardiac etiology. His telemetry remained unremarkable. We continued all his home medications while in hospital as well as on discharge. His urine culture grew Aerococcus. He was treated with levofloxacin while in hospital. His blood culture was negative. On discharge, we prescribed 7 more days of Levaquin therapy. This patient's generalized weakness, lethargy and altered mental status completely improved. The patient has significant chronic physical deconditioning and multiple other medical issues and that is why patient's decided to go home with home hospice. We consulted palliative care. With the help of director of casework services and palliative care, we arranged home hospice for patient and we also discussed code status during this admission and patient was made DNR. The patient is seen and examined at bedside today. PHYSICAL EXAMINATION: VITAL SIGNS: Currently, temperature 97.6, pulse 57, respiratory rate 20, saturation 93% on room air, weight 198 pounds, blood pressure 123/56. GENERAL: The patient is currently alert, awake, no obvious acute distress. HEAD: Normocephalic, atraumatic. LUNGS: Clear. CARDIAC: S1, S2 regular, without any murmurs. ABDOMEN: Soft and benign. EXTREMITIES: No edema. NEUROLOGIC: Nonfocal examination. The patient is medically stable for discharge today. Total time spent on discharge day 31 minutes MTDD
--- NOTE | 2017-11-13 13:59 | EKG ---
Test Reason : Blood Pressure : / mmHG Vent. Rate : 061 BPM Atrial Rate : 061 BPM P-R Int : 176 ms QRS Dur : 090 ms QT Int : 408 ms P-R-T Axes : 031 002 017 degrees QTc Int : 410 ms Normal sinus rhythm Q waves III, aVF Abnormal ECG Confirmed by EDD NAPOLES DO ([id number]), editorial project manager ADRIANE CASAS ([id number]) on 11/13/2017 1:58:42 PM Referred By: Confirmed By:EDD NAPOLES DO
== END 2017-09-27 13:37 | disposition hospice, home (50) | DRG 682 ==
LOC: ERS 20:28 → 2NO 22:35
PROVIDERS: ADMIT Family Medicine; ATTEND Family Medicine
DX: N17.9 Acute kidney failure, unspecified (principal); J18.9 Pneumonia, unspecified organism; G93.41 Metabolic encephalopathy; J96.11 Chronic respiratory failure with hypoxia; J44.0 Chronic obstructive pulmonary disease with (acute) lower respiratory infection; N39.0 Urinary tract infection, site not specified; Z99.81 Dependence on supplemental oxygen; G30.9 Alzheimer's disease, unspecified; F02.80 Dementia in other diseases classified elsewhere, unspecified severity, without behavioral disturbance, psychotic disturbance, mood disturbance, and anxiety; I10 Essential (primary) hypertension; I25.10 Atherosclerotic heart disease of native coronary artery without angina pectoris; K21.9 Gastro-esophageal reflux disease without esophagitis; Z90.79 Acquired absence of other genital organ(s); Z85.828 Personal history of other malignant neoplasm of skin; Z79.82 Long term (current) use of aspirin; Z88.1 Allergy status to other antibiotic agents; Z88.5 Allergy status to narcotic agent; Z88.8 Allergy status to other drugs, medicaments and biological substances; E86.0 Dehydration; F41.9 Anxiety disorder, unspecified; F32.9 Major depressive disorder, single episode, unspecified; E78.5 Hyperlipidemia, unspecified; Z51.5 Encounter for palliative care; Z66 Do not resuscitate; B96.89 Other specified bacterial agents as the cause of diseases classified elsewhere
CPT/HCPCS: 36415; 71010; 80048; 80053; 82550; 82553; 83605; 83880; 84443; 84484; 85007; 85025; 85027; 87040; 87086; 93005; 96365; A4216; G8978-GP-CM; G8979-GP-CK; G8996-GN-CL; G8997-GN-CL; J1956